=== PATIENT | male | born 1975 | race Two or more races ===

== ENCOUNTER 2025-06-12 01:17 | Emergency (ER) | payer OTHER ==
[~2025-06-12] VITALS: Ht 185.4 cm; Wt 111.0 kg
[2025-06-12] MEDS ORDERED: HYDROcodone-ACET 10/325MG TAB PO ONE (02:15)
[2025-06-12] MEDS: ONDANSETRON ODT 4 MG TAB PO ONE (02:30)
[2025-06-12] MEDS: MORPHINE SULFATE 4 MG/ML SYR/VIAL IM ONE (02:32)
[2025-06-12 02:40] VITALS: BP 139/91; PULSE 75; RESP 19; TEMP 98.7; O2SAT 97
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
== END 2025-06-12 03:04 | disposition left against medical advice (07) ==
LOC: ER 01:17
DX: S52.122B Displaced fracture of head of left radius, initial encounter for open fracture type I or II (principal); Z91.013 Allergy to seafood; V49.40XA Driver injured in collision with unspecified motor vehicles in traffic accident, initial encounter; Y93.I9 Activity, other involving external motion; Y92.488 Other paved roadways as the place of occurrence of the external cause; Y99.8 Other external cause status
CPT/HCPCS: 73090; 96372; 99283; J2270; Q0162